=== PATIENT | female | born 1945 ===

== ENCOUNTER → 2025-02-12 14:11 | Outpatient (REF) | payer OTHER, SELFPAY ==
[2025-02-12 14:54] LABS: % Eosinophils 2.4 % (0-6); % Immature Granulocytes 0.2 % (0-0.5); % Lymphocytes 33.8 % (20.5-51.1); % Monocytes 11.7 % (1.7-9.3); % Neutrophils 50.9 % (42.2-75.2); Absolute Basophils 0.1 10^3/uL (0-0.2); Absolute Eosinophils 0.1 10^3/uL (0-0.7); Absolute Lymphocytes 1.7 10^3/uL (1.2-3.4); Absolute Monocytes 0.6 10^3/uL (0.1-0.6); Absolute Neutrophils 2.5 10^3/uL (1.4-6.5); Hematocrit 36.6 % (37.0-47.0); Hemoglobin 12.3 g/dL (12.0-16.0); Mean Corp Hgb Conc. 33.6 g/dL (33.0-37.0); Mean Corpuscular Hgb 32.6 pg (27.0-31.0); Mean Corpuscular Volume 97.1 fL (81.0-99.0); Nucleated Red Blood Cells % 0 %; Platelet Count 219 10^3/uL (130-400); Red Blood Cell Count 3.77 10^6/uL (4.20-5.40); Red Cell Dist. Width 14.6 % (11.5-14.5)
[2025-02-12 15:06] LABS: Blood Urea Nitrogen 14 mg/dl (7-17); Calcium 8.8 mg/dl (8.4-10.2); Carbon Dioxide 25 mmol/L (22-30); Chloride 106 mmol/L (98-107); Glucose 80 mg/dl (70-99); HDL Cholesterol 48 mg/dl; LDL Cholesterol, Calculated 125 mg/dl; Potassium 3.9 mmol/L (3.5-5.1); Sodium 138 mmol/L (135-145); Total Cholesterol 200 mg/dl (50-199); Triglyceride 135 mg/dl (10-149); Very Low Density Lipoprotein 27 mg/dl (0-30); eGFR > 60.00
[2025-02-12 15:24] LABS: Free T4 1.15 ng/dl (0.78-2.19); Vitamin D, 25-OH*** 56.3 ng/mL (30-80)
[2025-02-12 15:57] LABS: Vitamin B12 354 pg/ml (239-931)
[2025-02-13 08:58] LABS: Glycohemoglobin (HgbA1c) 5.4 % (4.0-5.6)
== END ==
LOC: OLABSOL 14:11
PROVIDERS: ATTENDING PHYSICIAN Nurse Practitioner Adult Health
DX: E78.5 Hyperlipidemia, unspecified (principal); D51.9 Vitamin B12 deficiency anemia, unspecified; E55.9 Vitamin D deficiency, unspecified; D64.9 Anemia, unspecified; E11.9 Type 2 diabetes mellitus without complications; E03.9 Hypothyroidism, unspecified; R94.09 Abnormal results of other function studies of central nervous system
CPT/HCPCS: 36415; 80048; 80061; 82306; 82607; 83036; 84439; 84443; 85025

== ENCOUNTER → 2025-04-11 10:05 | Outpatient (REF) | payer OTHER, SELFPAY ==
[2025-04-11 11:52] LABS: TSH 6.00 uIU/ml (0.47-4.68)
== END ==
LOC: OLABSOL 10:05
PROVIDERS: ATTENDING PHYSICIAN Nurse Practitioner Adult Health
DX: E03.9 Hypothyroidism, unspecified (principal)
CPT/HCPCS: 36415; 84443

== ENCOUNTER → 2025-04-16 10:49 | Outpatient (REF) | payer OTHER, SELFPAY ==
[2025-04-16 12:16] LABS: TSH 4.81 uIU/ml (0.47-4.68)
== END ==
LOC: OLABSOL 10:49
PROVIDERS: ATTENDING PHYSICIAN Nurse Practitioner Adult Health
DX: R94.6 Abnormal results of thyroid function studies (principal)
CPT/HCPCS: 36415; 84439; 84443